=== PATIENT | male | born 1975 | race Caucasian/White ===

== ENCOUNTER → 2018-04-16 | Outpatient (CLI) | payer OTHER ==
--- NOTE | 2018-04-16 09:28 | REP ---
MRI right shoulder without contrast: History: "Ongoing right shoulder pain and bone deformity distal to sternoclavicular joint, right shoulder pain, dysfunction times 2 years. Concern is sternoclavicular and right shoulder pathology. MRI without contrast right shoulder." Technique: Standard right shoulder protocol was performed as ordered. Axial, oblique coronal and oblique sagittal imaging planes are utilized. T1 and T2-weighted scans were included with and without fat saturation. It should be noted however that the standard shoulder protocol does not include the medial clavicle and sternoclavicular joint. MRI findings: There is osteoarthritic hypertrophy at the acromioclavicular joint with marrow edema in the distal clavicle and minimal fluid. There is hypertrophy of the inferior aspect of the distal clavicle at the AC joint indenting the musculotendinous junction of the supraspinatus mechanism. A small subacromial subdeltoid bursal effusion is seen. There is otherwise normal cortical and medullary bone signal intensity. Subcortical cyst formation is visible in the superolateral humeral head. This is a finding which has been correlated with impingement. There is mild subscapularis tendinosis. Mild supraspinatus tendinosis is seen. No focal cuff tear is appreciated. There is, however, a posterior cartilaginous labral tear with paralabral cyst. The paralabral cyst measures 10 mm x 12 mm. The posterior labral cartilage is not displaced. No anterior or superior labral tear is appreciated. Impression: 1. AC joint osteoarthritis with inferior hypertrophy. 2. Subacromial subdeltoid bursal effusion. 3. Tendinosis changes in the supraspinatus and subscapularis tendons. No focal cuff tear. 4. Posterior labral cartilage tear with paralabral cyst. 5. The standard MRI shoulder protocol utilized does not display the medial clavicle or the sternoclavicular joint. Electronically Signed by Jeanmarie Alcantara MD 04/16/2018 05:29 P
== END ==
LOC: M RAD 06:33
PROVIDERS: ATTEND Clinical Nurse Specialist Psychiatric/Mental Health, Adult
DX: M19.011 Primary osteoarthritis, right shoulder (principal); M25.411 Effusion, right shoulder; S43.491A Other sprain of right shoulder joint, initial encounter; X58.XXXA Exposure to other specified factors, initial encounter; Y92.9 Unspecified place or not applicable

== ENCOUNTER → 2018-05-10 | Outpatient (CLI) | payer OTHER ==
--- NOTE | 2018-05-10 11:04 | REP ---
CT of the sternoclavicular joints without IV contrast: Axial images are acquired helical scanning and a reformatted sagittal coronal projections. There is no sternoclavicular dislocation on the right on the left. There is no sternoclavicular fracture. There is no fracture of the visible ribs and visualized portions of the scapula. The glenohumeral articulations are unremarkable. Impression: No sternoclavicular dislocation or fracture. Electronically Signed by Elliot Weathers MD 05/10/2018 10:56 A
== END ==
LOC: M RAD 09:44
PROVIDERS: ATTEND Clinical Nurse Specialist Psychiatric/Mental Health, Adult
DX: R07.89 Other chest pain (principal)